=== PATIENT | male | born 1955 | race Caucasian/White ===

== ENCOUNTER 2017-08-03 05:55 | Day surgery (SDC) | payer OTHER ==
[~2017-08-03 05:55] MED LIST: AMLODIPINE BESYL5 MG PO; LOSARTAN-HCTZ1 EAC1 PO; NEURONTIN600 MG PO; OMEPRAZOLE40 MG PO
== END 2017-08-03 15:20 | disposition home or self-care (01) ==
LOC: CIR.AMB 05:55
DX: K64.8 Other hemorrhoids (principal)